=== PATIENT | male | born 1950 | race Caucasian/White ===

== ENCOUNTER → 2017-03-07 | Outpatient (CLI) | payer MEDICARE, OTHER ==
[~2017-03-07] MED LIST: ALEVE220 MG PO; ASPIRIN LO-DOSE81 MG PO; COLACE100 MG PO; DILAUDID 2MG(HYD2 MG PO; LIPITOR20 M1 PO; MIRALAX17 GM PO; NICODERM/HABITR21 MG TRANS; NORCO 5-325 MG1 TAB PO; VALIUM5 MG PO; XARELTO10 MG PO
== END | disposition disaster alternative care site (69) ==
LOC: LGSMG 11:50
DX: R55 Syncope and collapse (principal); R42 Dizziness and giddiness; I10 Essential (primary) hypertension; E03.9 Hypothyroidism, unspecified

== ENCOUNTER → 2017-03-07 | Outpatient (CLI) | payer MEDICARE, OTHER ==
--- NOTE | ~2017-03-07 | ECHO ---
Transthoracic Echocardiography Report (TTE) Demographics Patient Name VIKASH ANDRADE Date of Study 03/07/2017 Patient Number [id number] Visit Number [id number] Date of 1950 Room Number Gender Male Number Age 66 year(s) Referring Wiley Tang MD Director Of Food And Beverage Services Amira RVT, RDCS Physician Jessa Physician Interpreting Phoebe Brown Music Therapy Teacher Physician MD Supervising Ordering Wiley Tang MD, MD/MLP Physician Nurse Stress Associate Marketing Manager Conclusions Contractility Score Summary Normal Left Ventricular contractility was noted. Summary The estimated left ventricular ejection fraction is 70-75%. Mild concentric left ventricular hypertrophy. Diastolic assessment reveals Grade I diastolic dysfunction. There is mild aortic stenosis by the Continuity Equation. The peak velocity is 2.55 m/s, the mean gradient is 19 mmHg, and the valve area based on the continuity equation is 1.08 cm2, stroke volume index is 26.63 ml/m2. Procedure Type of Study TTE procedure:2D Echocardiogram, M-Mode, Doppler , Color Doppler. Procedure Date Date: 03/07/2017 Start: 02:16 PM Study Location: Echo Lab Technical Quality: Adequate visualization Indications:Dizziness and Pre-syncope. Appropriate Use Criteria: 7 Patient Status: Routine HR: 89 bpm BP: 142/78 mmHg M-Mode/2D Measurements LV Diastolic Dimension: 3.96 cm LV Systolic Dimension: 2.5 cm LV Septum Diastolic: 1.59 cm LV PW Diastolic: 1.22 cm AO Root Dimension: 2.4 cm Cardiac Output: 4.83 l/min AV Cusp Separation: 1.2 cm RV Diastolic Dimension: 2.73 cm LA volume: 13 ml LVOT: 2 cm RV Base: 2.64 cm LVOT VTI: 17.3 cm RV Mid: 2.28 cm LV Stroke volume: 54.32 ml TAPSE: 2.78 cm TDI-S': 19.6 cm/s Doppler Measurements AV Peak Velocity: 2.55 m/s MV Peak E-Wave: 0.64 m/s AV Peak Gradient: 26.01 mmHg MV Peak A-Wave: 0.92 m/s AV Mean Gradient: 19 mmHg MV E/A Ratio: 0.7 LVOT Peak Velocity: 0.87 m/s MV P1/2t: 56 msec PV Peak Velocity: 0.8 m/s E' Septal Velocity: 0.08 m/s PV Peak Gradient: 2.59 mmHg E' Lateral Velocity: 0.08 m/s A' Septal Velocity: 0.1 m/s A' Lateral Velocity: 0.08 m/s Findings Left Ventricle Mild concentric left ventricular hypertrophy. Diastolic assessment reveals Grade I diastolic dysfunction. Right Ventricle Normal right ventricle structure and function. Left Atrium Normal left atrial size. Right Atrium Normal right atrial size. Mitral Valve Normal mitral valve structure and function. Aortic Valve The aortic valve is moderately sclerotic. There is trivial aortic regurgitation by color Doppler. There is mild aortic stenosis by the Continuity Equation. The peak velocity is 2.55 m/s, the mean gradient is 19 mmHg, and the valve area based on the continuity equation is 1.08 cm2, stroke volume index is 26.63 ml/m2. Tricuspid Valve Normal tricuspid valve structure and function. Pulmonic Valve Normal pulmonic valve structure and function. Pericardial Effusion No evidence of pericardial effusion. Pleural Effusion No evidence of pleural effusion. Contractility Score LV regional wall motion:(0-Non visualized 1-Normal 2-Hypokinesis 3-Akinesis 4-Dyskinesis 5-Aneurysm) Signature dtt: Jessy Sandhu dtd: 03/07/17 1416 Physician Self Edit
== END | disposition disaster alternative care site (69) ==
LOC: GRAD 12:53
DX: R55 Syncope and collapse (principal); I51.7 Cardiomegaly; I51.9 Heart disease, unspecified; I35.0 Nonrheumatic aortic (valve) stenosis; R26.89 Other abnormalities of gait and mobility; R42 Dizziness and giddiness

== ENCOUNTER → 2017-03-13 | Outpatient (CLI) | payer MEDICARE, OTHER ==
--- NOTE | ~2017-03-13 | ENPV ---
Carotid Duplex Study Demographics Patient Name VIKASH ANDRADE Date of Study 03/13/2017 Patient Number [id number] Gender Male Date of 1950 Age 66 Visit Number [id number] Height 70 Weight 205 Number Referring Phoebe Gunns Interpreting Judahou Maxiayotis Physician A MD Physician A MD Wiley Tang MD Physician Ordering Efsanthonytiou Panayotis Recycle Driver Physician A Assistant Director Of Security Tiffany Cornejo RDCS, RVT Baltaabhijit Cerone RDCS, RVT Conclusions Summary The right internal carotid artery has mild, 1-39%, plaque and stenosis. The right vertebral artery is present with antegrade flow. The left internal carotid artery has mild, 1-39%, plaque and stenosis. The left vertebral artery is present with antegrade flow. Procedure Type of Study: Cerebral:Carotid, Carotid Doppler Bilateral. Indications for Study:Bruit. Appropriate Use Criteria:7 Blood Pressure:Right arm 135/66 mmHg.Left arm 138/68 mmHg. Patient Status:Routine. Study Location:Vascular Lab. Technical Quality:Adequate visualization. Risk Factors - The patient's risk factor(s) include: dyslipidemia and treated arterial hypertension. - The patient has a current/recent (within 1 year) tobacco history. Velocities are measured in cm/s ; Diameters are measured in cm Carotid Right Measurements Carotid Left Measurements + +--------+--------+ + + + +--------+ --------+ + + !Location !PSV !EDV !Angle !%Stenosis ! !Location !PSV ! EDV !Angle !%Stenosis ! + +--------+--------+ + + + +--------+ --------+ + + !Prox CCA !96 !25 !60 ! ! !Prox CCA !126 ! 31 !60 ! ! + +--------+--------+ + + + +--------+ --------+ + + !Dist CCA !67 !16 !60 ! ! !Dist CCA !84 ! 26 !60 ! ! + +--------+--------+ + + + +--------+ --------+ + + !Prox ICA !87 !31 !60 ! ! !Prox ICA !70 ! 20 !60 ! ! + +--------+--------+ + + + +--------+ --------+ + + !Dist ICA !89 !31 !60 ! ! !Dist ICA !98 ! 40 !60 ! ! + +--------+--------+ + + + +--------+ --------+ + + !Prox ECA !119 !11 !60 ! ! !Prox ECA !78 ! 15 !60 ! ! + +--------+--------+ + + + +--------+ --------+ + + !Vertebral !36 !11 !60 ! ! !Vertebral !47 ! 15 !60 ! ! + +--------+--------+ + + + +--------+ --------+ + + !Subclavian !84 !3 !60 ! ! !Subclavian !89 ! 4 !60 ! ! + +--------+--------+ + + + +--------+ --------+ + + - There is antegrade vertebral flow noted on the right side. - There is antegrade verte bral flow noted on the left side. - Add'l Measurements:Subclavian PRV 84 cm/sICAPSV/CCAPSV - Add'l Measurements:Subcl sheri PRV 126 cm/sICAPSV/CCAPSV 0.93.ICAEDV/CCAEDV 1.23. 0.77.ICAEDV/CCAEDV 1.31. Impressions Right Impression There is a mild amount of smooth homogeneous plaque in the right carotid bifurcation. Left Impression There is a mild amount of smooth homogeneous plaque in the left common carotid artery . Signature dtt: dtd: 03/13/17 0927 Physician Self Edit
--- NOTE | ~2017-03-13 | ESTC ---
Cardiac Perfusion Imaging Demographics Patient Name LUPE Brown Gender Male Patient Number [id number] Race Visit Number [id number] Ethnicity Corporate ID Room Number Accession Number [id number] Height 70 inches Date of 1950 Weight 205 pounds Interpreting Brenna Matthews Date of study 03/13/2017 Physician Supervising /RAFAP Phoebe LICEA Technologist Marianna Brown MD Ordering Physician Phoebe Constantino A computer systems technician Stress ECG Reading Phoebe Leiva Nurse Mica Rendon Physician A RN Juan Canales RN Medications Reviewed with Patient prior to Procedure. Procedure Admit Source:Other. Procedure Type: Nuclear Stress Test:Pharmacological, Lexiscan, Cardiolite Stress Test Procedure Start time: 03/13/2017 08:30 Indications: Dyslipidemia. Risk Factors The patient risk factors include:Current/Recent(w/in 1 year) tobacco use, hypercholesterolemia, treated hypertension and dyslipidemia. Conclusions Impression ECG portion of lexiscan stress test is clinically negative for ischemia by diagnostic criteria. Myocardial perfusion imaging is normal. Overall left ventricular systolic function was normal without regional wall motion abnormalities. Calculated LVEF is 55% and TID ratio is 1.18. There are no previous studies for comparison. Stress Protocols Resting ECG SR LVH Pre-stress physical exam: Patient assessed by Dr Sandhu prior to testing. Stress Protocol:Pharmacologic Predicted HR: 154 bpm ECG Findings No ECG changes suggestive of ischemia. Arrhythmias No rhythm abnormality. Symptoms No symptoms with Lexiscan infusion. Stress Interpretation Appropriate hemodynamic response to Lexiscan. No significant ST-T wave changes with Lexiscan. ECG portion is negative for ischemia by diagnostic criteria. Imaging Results Summed scores - Summed stress score: 4 - Summed rest score: 10 - Summed difference score: -6 Stress ejection Ejection fraction:55 % EDV :118 ml ESV :53 ml Stroke volume :65 ml LV mass :153 gr Imaging Protocols Rest Stress Isotope:Tc99m Sestamibi IV Isotope: Tc99m Sestamibi IV Isotope dose:14.1 mCi Isotope dose:42.8 mCi Date:03/13/2017 07:39 Date:03/13/2017 08:53 Technique: SPECT Technique: Gated Supine SPECT Supine Scan Time:30 minutes post injection Scan Time:45-60 minutes post injection Procedure Medications - Regadenoson (Lexiscan) 0.4 mg IV over 10-15 sec. I.V. 0.4 mg. Medications administered per verbal order and read back to physician prior to administration. Medical History Admission Data Admission date: 03/13/2017 Admission Time: 07:21 Hospital Status: Outpatient. Signatures dtt: ROBLES GUERRERO dtd: 03/13/17 0830 Physician Self Edit
== END | disposition disaster alternative care site (69) ==
LOC: GRAD 07:21
DX: I25.10 Atherosclerotic heart disease of native coronary artery without angina pectoris (principal); I65.23 Occlusion and stenosis of bilateral carotid arteries; E78.00 Pure hypercholesterolemia, unspecified; E78.5 Hyperlipidemia, unspecified; I10 Essential (primary) hypertension; R09.89 Other specified symptoms and signs involving the circulatory and respiratory systems
CPT/HCPCS: A9500; J2785